=== PATIENT | male | born 1965 | race African-American/Black ===

== ENCOUNTER 2021-12-31 21:19 | Inpatient (IN) | payer OTHER ==
[~2021-12-31] VITALS: Ht 177.8 cm; Wt 114.0 kg
[2021-12-31] MEDS ORDERED: SODIUM CHLORIDE 0.9% 1,000 ML IV ONE (21:30)
[2021-12-31 21:58] LABS: BASOPHILS % 1.1 % (0.0-2.0); EOSINOPHILS % 0.7 % (0.0-5.0); HEMOGLOBIN. 15.9 g/dL (14.0-18.0); LYMPHOCYTES % 19.8 % (20.0-50.0); MEAN CORPUSCULAR HEMOGLOBIN 34.3 pg (28.0-32.0); MEAN CORPUSCULAR VOLUME 103.8 fL (80.0-94.0); MONOCYTES % 7.8 % (2.0-8.0); NEUTROPHILS % 70.6 % (40.0-76.0); PLATELET 195 x1000/uL (130-400); RED BLOOD CELL COUNT 4.62 mill/uL (4.7-6.1); RED CELL DISTRIBUTION WIDTH 13.3 % (11.6-14.6)
[2021-12-31 22:02] LABS: CHLORIDE 103 mEq/L (98-107)
[2021-12-31 22:14] LABS: *AMPHETAMINES SCREEN URINE NEGATIVE (NEGATIVE); *BARBITURATES SCREEN URINE NEGATIVE (NEGATIVE); *BENZODIAZEPINES SCREEN URINE NEGATIVE (NEGATIVE); *COCAINE SCREEN URINE NEGATIVE (NEGATIVE); CANNABINOID URINE SCREEN NEGATIVE (NEGATIVE); METHADONE URINE SCREEN NEGATIVE (NEGATIVE); OPIATES URINE SCREEN NEGATIVE (NEGATIVE); PHENCYCLIDINE URINE SCREEN NEGATIVE (NEGATIVE)
[2021-12-31 22:20] LABS: ETHANOL BLOOD 13 mg/dL
[2022-01-01] MEDS ORDERED: PHENOBARBITAL 60MG TABLET PO NR (03:00)
[2022-01-01] MEDS ORDERED: CLONIDINE 0.1MG TABLET PO SCH ×2 (03:00→10:00)
[2022-01-01 05:18] VITALS: BP 138/88
[2022-01-01] MEDS ORDERED: IOHEXOL-350 100 ML BOTTLE ONE (05:38)
== END 2022-01-01 05:18 | disposition short-term general hospital (02) | DRG 201 ==
LOC: ER 21:19 → MICUSO 01-01 02:48
PROVIDERS: ADMIT Internal Medicine; ATTEND Internal Medicine
DX: I47.1 Supraventricular tachycardia (principal); F10.239 Alcohol dependence with withdrawal, unspecified; R77.8 Other specified abnormalities of plasma proteins; F12.90 Cannabis use, unspecified, uncomplicated; F17.210 Nicotine dependence, cigarettes, uncomplicated
CPT/HCPCS: 36415; 71045; 71275; 74174; 80053; 80305; 80320; 83880; 84443; 84484; 85025; 93005; 99285; Q9967; G0480

== ENCOUNTER 2023-04-06 08:13 | Emergency (ER) | payer OTHER ==
[~2023-04-06] VITALS: Ht 193 cm; Wt 115.0 kg
[2023-04-06 08:15] VITALS: O2SAT 98
[2023-04-06] MEDS ORDERED: CHLORDIAZEPOXIDE 25MG CAPSULE PO ONE (08:30)
[2023-04-06] MEDS ORDERED: ASPIRIN 81MG TABLET PO ONE (08:30)
[2023-04-06 08:47] LABS: BASOPHILS % 0.6 % (0.0-2.0); DIFFERENTIAL COMMENT 0; EOSINOPHILS % 2.3 % (0.0-5.0); HEMATOCRIT. 45.4 % (42.0-52.0); HEMOGLOBIN. 15.2 g/dL (14.0-18.0); LYMPHOCYTES % 19.4 % (20.0-50.0); MEAN CORPUSCULAR HEMOGLOBIN 34.4 pg (28.0-32.0); MEAN CORPUSCULAR HGB CONC 33.4 g/dL (31.0-37.0); MEAN CORPUSCULAR VOLUME 102.9 fL (80.0-94.0); MEAN PLATELET VOLUME 8.8 fl (7.4-10.4); MONOCYTES % 8.8 % (2.0-8.0); NEUTROPHILS % 68.9 % (40.0-76.0); PLATELET 188 x1000/uL (130-400); RED BLOOD CELL COUNT 4.42 mill/uL (4.7-6.1); RED CELL DISTRIBUTION WIDTH 12.6 % (11.6-14.6); WHITE BLOOD COUNT 7.8 x1000/uL (4.5-11.0)
[2023-04-06 08:52] LABS: CHLORIDE 105 mEq/L (98-107); INDEX HEMOLYSI 1 (1-3); INDEX ICTERIC 1 (1-4); INDEX LIPEMIC 1 (1-3); POTASSIUM 3.8 mEq/L (3.5-5.1); SODIUM 140 mEq/L (136-145)
[2023-04-06 08:54] LABS: PARTIAL THROMBOPLASTIN TIME 29.2 sec (23.4-31.0); PROTHROMBIN TIME 11.1 sec (9.6-11.0)
[2023-04-06 09:02] LABS: ALANINE AMINOTRANSFERASE 31 IU/L (13-61); ALBUMIN 3.3 g/dL (3.4-5.0); ASPARTATE AMINOTRANSFERASE 26 IU/L (15-37); BILIRUBIN TOTAL 0.7 mg/dL (0.1-1.0); CALCIUM 8.6 mg/dL (8.5-10.1); CARBON DIOXIDE 30 mEq/L (21-32); CREATININE 1.1 mg/dL (0.6-1.3); GLUCOSE 126 mg/dL (70-105); NT PRO B-TYPE NATRIURETIC PEP 82 pg/mL (5-125); TROPONIN I HIGH SENSITIVITY 14 ng/L (<78); UREA NITROGEN BLOOD 14 mg/dL (7-21)
[2023-04-06 12:34] VITALS: BP 150/114; PULSE 85; RESP 16; TEMP 98.2
== END 2023-04-06 12:55 | disposition home or self-care (01) ==
LOC: ER 08:13
DX: I47.10 Supraventricular tachycardia, unspecified (principal); F10.10 Alcohol abuse, uncomplicated; F12.10 Cannabis abuse, uncomplicated; I11.0 Hypertensive heart disease with heart failure; I50.9 Heart failure, unspecified; Z98.890 Other specified postprocedural states; Y90.9 Presence of alcohol in blood, level not specified
CPT/HCPCS: 80053; 83880; 83690; 85025; 85610; 85730; 84484; 36415; 71045; 93005; 99285; Z7610 ×5

== ENCOUNTER 2023-11-01 03:23 | Emergency (ER) | payer OTHER ==
[~2023-11-01] VITALS: Ht 177.8 cm; Wt 114.0 kg
[~2023-11-01 03:23] MED LIST: DILT300C35 MT
[2023-11-01 03:31] VITALS: TEMP 97.9; O2SAT 97
[2023-11-01 04:09] LABS: CLARITY URINE CLEAR (CLEAR); COLOR URINE YELLOW (YELLOW); GLUCOSE URINE NEGATIVE (NEGATIVE); KETONES URINE NEGATIVE (NEGATIVE); LEUKOCYTE ESTERASE URINE NEGATIVE (NEGATIVE); NITRITE URINE NEGATIVE (NEGATIVE); OCCULT BLOOD URINE NEGATIVE (NEGATIVE); PROTEIN URINE NEGATIVE (NEGATIVE); SPECIFIC GRAVITY URINE 1.005 (1.005-1.030); UROBILINOGEN URINE 0.2 E.U./dL (0.2-1.0)
[2023-11-01 04:18] LABS: BASOPHILS % 0.7 % (0.0-2.0); DIFFERENTIAL COMMENT 0; EOSINOPHILS % 0.5 % (0.0-5.0); HEMATOCRIT. 44.4 % (42.0-52.0); LYMPHOCYTES % 18.2 % (20.0-50.0); MEAN CORPUSCULAR HEMOGLOBIN 34.5 pg (28.0-32.0); MEAN CORPUSCULAR HGB CONC 33.9 g/dL (31.0-37.0); MEAN CORPUSCULAR VOLUME 101.9 fL (80.0-94.0); MEAN PLATELET VOLUME 8.4 fl (7.4-10.4); MONOCYTES % 5.9 % (2.0-8.0); NEUTROPHILS % 74.7 % (40.0-76.0); PLATELET 223 x1000/uL (130-400); RED BLOOD CELL COUNT 4.36 mill/uL (4.7-6.1); RED CELL DISTRIBUTION WIDTH 13.8 % (11.6-14.6); WHITE BLOOD COUNT 11.4 x1000/uL (4.5-11.0)
[2023-11-01 04:22] LABS: CHLORIDE 104 mEq/L (98-107); SODIUM 136 mEq/L (136-145)
[2023-11-01 04:23] LABS: CALCIUM 8.7 mg/dL (8.7-10.4); CARBON DIOXIDE 24 mEq/L (21-32)
[2023-11-01 04:28] LABS: CREATININE 1.1 mg/dL (0.6-1.3); GLUCOSE 133 mg/dL (70-105); UREA NITROGEN BLOOD 7 mg/dL (9-23)
[2023-11-01 04:30] LABS: ALANINE AMINOTRANSFERASE 27 IU/L (10-49); ALBUMIN 4.3 g/dL (3.2-4.8); ASPARTATE AMINOTRANSFERASE 28 IU/L (<34); BILIRUBIN TOTAL 0.3 mg/dL (0.1-1.0)
[2023-11-01] MEDS ORDERED: DICYCLOMINE 10 MG/5 ML ORAL SYR PO STA (05:40)
[2023-11-01] MEDS ORDERED: ACETAMINOPHEN WITH CODEINE 300/30MG TABLET PO ONE (05:45)
[2023-11-01] MEDS: ONDANSETRON 4MG ODT PO STA (06:06)
[2023-11-01] MEDS: IBUPROFEN 400MG TABLET PO ONE (06:06)
[2023-11-01] MEDS: DICYCLOMINE HCL 10MG CAPSULE PO NR (06:06)
[2023-11-01] MEDS: MAGNESIUM/ALUMINUM HYDROXIDE/SIMETHICONE 30ML UDC PO STA (06:07)
[2023-11-01] MEDS: ONDANSETRON HCL 4MG TABLET PO ONE (06:07)
[2023-11-01] MEDS: ACETAMINOPHEN WITH CODEINE 300/30MG TABLET PO NR (06:37)
[2023-11-01] MEDS ORDERED: TOPUD PO (07:03)
[2023-11-01 07:20] VITALS: BP 126/76; PULSE 88; RESP 16
== END 2023-11-01 07:21 | disposition home or self-care (01) ==
LOC: ER 03:31
DX: R10.9 Unspecified abdominal pain (principal); M54.9 Dorsalgia, unspecified; I10 Essential (primary) hypertension
CPT/HCPCS: 80053; 81003; 85025; 36415; 74176; 99284; Q0162; Z7610

== ENCOUNTER 2024-05-06 19:07 | Emergency (ER) | payer OTHER ==
[~2024-05-06] VITALS: Ht 177.8 cm; Wt 130.0 kg
[~2024-05-06 19:07] MED LIST changes: +TOPUD PO
[2024-05-06 19:11] VITALS: TEMP 98.4; O2SAT 99
[2024-05-06 21:23] LABS: HEMATOCRIT 43.5 % (42.0-52.0); HEMOGLOBIN 14.5 g/dL (14.0-18.0); MEAN CORPUSCULAR HEMOGLOBIN 34.2 pg (28.0-32.0); MEAN CORPUSCULAR HGB CONC 33.3 g/dL (31.0-37.0); MEAN CORPUSCULAR VOLUME 102.7 fL (80.0-94.0); PLATELET 190 x1000/uL (130-400); RED BLOOD CELL COUNT 4.24 mill/uL (4.7-6.1); RED CELL DISTRIBUTION WIDTH 13.2 % (11.6-14.6); WHITE BLOOD COUNT 8.8 x1000/uL (4.5-11.0)
[2024-05-06 21:32] LABS: CHLORIDE 107 mEq/L (98-107); POTASSIUM 3.9 mEq/L (3.5-5.1); SODIUM 140 mEq/L (136-145)
[2024-05-06 21:33] LABS: CALCIUM 8.8 mg/dL (8.7-10.4); CARBON DIOXIDE 30 mEq/L (21-32)
[2024-05-06 21:38] LABS: CREATININE 0.9 mg/dL (0.6-1.3); GLUCOSE 90 mg/dL (70-105); UREA NITROGEN BLOOD 9 mg/dL (9-23)
[2024-05-06 21:39] LABS: TROPONIN I HIGH SENSITIVITY 10 ng/L (3.0-53)
[2024-05-06] MEDS ORDERED: DILT120T2 MT (21:49)
[2024-05-06 22:33] VITALS: BP 124/72; PULSE 98; RESP 15; O2SAT 98
== END 2024-05-06 22:33 | disposition home or self-care (01) ==
LOC: ER 19:07
DX: R00.2 Palpitations (principal); I11.9 Hypertensive heart disease without heart failure; I47.10 Supraventricular tachycardia, unspecified; Z76.0 Encounter for issue of repeat prescription; E78.5 Hyperlipidemia, unspecified; Z79.899 Other long term (current) drug therapy
CPT/HCPCS: 36415; 71045; 80048; 84484; 85027; 93005; 99285